=== PATIENT | female | born 2000 | race Caucasian/White ===

== ENCOUNTER 2024-09-04 19:32 | Emergency (ER) | payer SELFPAY ==
[~2024-09-04] VITALS: Ht 170.2 cm; Wt 68.0 kg
[2024-09-04] MEDS ORDERED: ONDANSETRON HCL/PF 4 MG/2 ML VIAL ONE (20:31)
[2024-09-04] MEDS ORDERED: MORPHINE SULFATE INJ 4 MG/ML DISP.SYRIN ONE (20:32)
[2024-09-04] MEDS: IV NS 0.9% 500 ML BAG IV ONE (20:42)
[2024-09-04] MEDS: MORPHINE SULFATE INJ 2 MG/ML DISP.SYRIN IV ONE (20:43)
[2024-09-04] MEDS: ONDANSETRON HCL/PF 4 MG/2 ML VIAL IV ONE (20:43)
[2024-09-04 20:53] LABS: BASOPHILS # (AUTO) 0.1 K/uL (0.0-0.2); BASOPHILS % (AUTO) 0.5 % (0.0-2.0); EOSINOPHILS % (AUTO) 0.2 % (0.0-6.0); HEMATOCRIT 39 % (33-45); HEMOGLOBIN 13.5 g/dL (11.5-14.8); LYMPHOCYTES # (AUTO) 1.3 K/uL (0.8-4.8); LYMPHOCYTES % (AUTO) 11.1 % (20.0-44.0); MEAN CORPUSCULAR HEMOGLOBIN 32 PG (26.0-33.0); MEAN CORPUSCULAR HGB CONC 35 g/dl (31.0-36.0); MEAN CORPUSCULAR VOLUME 91 fL (82-100); MONOCYTES # (AUTO) 0.7 K/uL (0.1-1.30); MONOCYTES % (AUTO) 5.9 % (2.0-12.0); NEUTROPHILS # (AUTO) 9.9 K/uL (1.8-8.9); NEUTROPHILS % (AUTO) 82.3 % (43.0-81.0); PLATELET COUNT (AUTO) 319 K/uL (150-450); RED BLOOD CELL COUNT(AUTO) 4.22 MIL/uL (4.0-5.2); RED CELL DISTRIBUTION WIDTH 12.9 % (11.5-15.0)
[2024-09-04 21:01] LABS: CALCIUM, SERUM 9.4 mg/dL (8.5-10.1); CREATININE 0.8 mg/dL (0.6-1.3); POTASSIUM 3.9 mmol/L (3.5-5.1)
[2024-09-04] MEDS ORDERED: HYDR-4675 PO (21:49)
[2024-09-04 22:08] VITALS: BP 119/72; TEMP 98.4; O2SAT 99
== END 2024-09-04 22:08 | disposition home or self-care (01) ==
LOC: ER 19:37
DX: O03.4 Incomplete spontaneous abortion without complication (principal); R11.10 Vomiting, unspecified; R10.2 Pelvic and perineal pain
CPT/HCPCS: 99285; 96374; 76805; 85025; 80048; 36415; 86850; 84702; J2270; J2405; J7040